=== PATIENT | female | born 1960 | race African-American/Black ===

== ENCOUNTER → 2016-12-27 | Outpatient (CLI) | payer MEDICARE, MEDICAID ==
[~2016-12-27] MED LIST: ALBU1.257 NEB; ALPR2TAB2 PO; B-COCAP34; BIOT10004; CALC600T4; DOCU-94; ERGO2000 PO; FLUT250M2 INH; GARL10CA2 PO; LOS50T PO; MECL-87 PO; MEGE40TA15 PO; MELA3TAB27 PO; MET10T PO; METF-312 PO; NAPR-604 PO; OMEGCAP9; OMEP20CA5 PO; OXYC10TA44 PO; PANTPAK; PEDI0.2512; POTATAB; PREMARIN VG; PRENTAB76; RANO500T2 PO; SUCR1TAB38 OR; [UNRECOGNIZED DRUG - CODE]
[2016-12-27 12:43] VITALS: BP_SYST 122; BP_DIAS 80; BP_DIAS 88
== END | disposition home or self-care (01) ==
LOC: CHF HDHVI 13:25
PROVIDERS: ATTEND Internal Medicine Cardiovascular Disease
DX: I50.33 Acute on chronic diastolic (congestive) heart failure (principal); I25.118 Atherosclerotic heart disease of native coronary artery with other forms of angina pectoris
CPT/HCPCS: G0166

== ENCOUNTER → 2017-02-04 | Outpatient (CLI) | payer MEDICARE, MEDICAID ==
[~2017-02-04] MED LIST changes: +READI-CAT 2 (BARIUM SULF)(VANILLA SMOOTHIE) 450ML ONE
== END | disposition home or self-care (01) ==
LOC: Rad HDHVI 11:48
PROVIDERS: ATTEND Internal Medicine Cardiovascular Disease
DX: K80.20 Calculus of gallbladder without cholecystitis without obstruction (principal); K42.9 Umbilical hernia without obstruction or gangrene; M51.36 Other intervertebral disc degeneration, lumbar region; M48.06 Spinal stenosis, lumbar region; Z98.84 Bariatric surgery status; Z90.710 Acquired absence of both cervix and uterus
CPT/HCPCS: 74176

== ENCOUNTER → 2017-02-21 | Outpatient (CLI) | payer MEDICARE, MEDICAID ==
[~2017-02-21] MED LIST changes: -READI-CAT 2 (BARIUM SULF)(VANILLA SMOOTHIE) 450ML ONE
[2017-02-21 13:27] VITALS: BP_SYST 113; BP_SYST 122; BP_DIAS 76; BP_DIAS 86
== END | disposition home or self-care (01) ==
LOC: CHF HDHVI 13:00
PROVIDERS: ATTEND Internal Medicine Cardiovascular Disease
DX: I25.118 Atherosclerotic heart disease of native coronary artery with other forms of angina pectoris (principal); I50.23 Acute on chronic systolic (congestive) heart failure
CPT/HCPCS: G0166

== ENCOUNTER → 2017-02-22 | Outpatient (CLI) | payer MEDICARE, MEDICAID ==
[2017-02-22 13:03] VITALS: BP_SYST 132; BP_SYST 140; BP_DIAS 81; BP_DIAS 89
== END | disposition home or self-care (01) ==
LOC: CHF HDHVI 13:00
PROVIDERS: ATTEND Internal Medicine Cardiovascular Disease
DX: I25.118 Atherosclerotic heart disease of native coronary artery with other forms of angina pectoris (principal); I50.33 Acute on chronic diastolic (congestive) heart failure
CPT/HCPCS: G0166

== ENCOUNTER → 2017-02-24 | Outpatient (CLI) | payer MEDICARE, MEDICAID ==
[2017-02-24 13:24] VITALS: BP_SYST 121; BP_SYST 128; BP_DIAS 86; BP_DIAS 87
== END | disposition home or self-care (01) ==
LOC: CHF HDHVI 13:43
PROVIDERS: ATTEND Internal Medicine Cardiovascular Disease
DX: I25.118 Atherosclerotic heart disease of native coronary artery with other forms of angina pectoris (principal); I50.33 Acute on chronic diastolic (congestive) heart failure
CPT/HCPCS: G0166

== ENCOUNTER → 2017-02-28 | Outpatient (CLI) | payer MEDICARE, MEDICAID ==
[2017-02-28 12:12] VITALS: BP_SYST 130; BP_SYST 138; BP_DIAS 76; BP_DIAS 79
== END | disposition home or self-care (01) ==
LOC: CHF HDHVI 11:43
PROVIDERS: ATTEND Internal Medicine Cardiovascular Disease
DX: I50.33 Acute on chronic diastolic (congestive) heart failure (principal); I25.118 Atherosclerotic heart disease of native coronary artery with other forms of angina pectoris
CPT/HCPCS: G0166

== ENCOUNTER → 2017-03-01 | Outpatient (CLI) | payer MEDICARE, MEDICAID ==
[2017-03-01 12:40] VITALS: BP_SYST 119; BP_SYST 131; BP_DIAS 88
== END | disposition home or self-care (01) ==
LOC: CHF HDHVI 12:00
PROVIDERS: ATTEND Internal Medicine Cardiovascular Disease
DX: I50.33 Acute on chronic diastolic (congestive) heart failure (principal); I25.118 Atherosclerotic heart disease of native coronary artery with other forms of angina pectoris
CPT/HCPCS: G0166

== ENCOUNTER → 2017-03-07 | Outpatient (CLI) | payer MEDICARE, MEDICAID ==
[2017-03-07 12:50] VITALS: BP_SYST 120; BP_SYST 122; BP_DIAS 74; BP_DIAS 78
== END | disposition home or self-care (01) ==
LOC: CHF HDHVI 11:51
PROVIDERS: ATTEND Internal Medicine Cardiovascular Disease
DX: I25.118 Atherosclerotic heart disease of native coronary artery with other forms of angina pectoris (principal); I50.33 Acute on chronic diastolic (congestive) heart failure
CPT/HCPCS: G0166

== ENCOUNTER → 2017-03-08 | Outpatient (CLI) | payer MEDICARE, MEDICAID ==
[2017-03-08 13:00] VITALS: BP_SYST 131; BP_SYST 132; BP_DIAS 86; BP_DIAS 89
== END | disposition home or self-care (01) ==
LOC: CHF HDHVI 12:52
PROVIDERS: ATTEND Internal Medicine Cardiovascular Disease
DX: I25.118 Atherosclerotic heart disease of native coronary artery with other forms of angina pectoris (principal); I50.33 Acute on chronic diastolic (congestive) heart failure
CPT/HCPCS: G0166

== ENCOUNTER → 2017-11-01 | Outpatient (CLI) | payer MEDICARE, MEDICAID ==
[~2017-11-01] MED LIST changes: -METF-312 PO; +METF-370 PO; +MVI in SODIUM CHLORIDE 0.9% 1,000 ML IVB ONE; +MVI in SODIUM CHLORIDE 0.9% 1,010 ML ONE; -NAPR-604 PO; +NAPR375T27 PO; -OMEP20CA5 PO; +OMEP20CA74 PO
[2017-11-01 14:40] VITALS: BP 132/73
== END | disposition home or self-care (01) ==
LOC: CHF HDHVI 11:29
PROVIDERS: ATTEND Internal Medicine Cardiovascular Disease
DX: E86.0 Dehydration (principal); D64.9 Anemia, unspecified; I25.10 Atherosclerotic heart disease of native coronary artery without angina pectoris; Z98.84 Bariatric surgery status
CPT/HCPCS: 96365; 96366; G0463; J3411; J3475

== ENCOUNTER → 2018-03-31 | Outpatient (CLI) | payer MEDICARE, MEDICAID ==
[~2018-03-31] MED LIST changes: -MVI in SODIUM CHLORIDE 0.9% 1,000 ML IVB ONE; -MVI in SODIUM CHLORIDE 0.9% 1,010 ML ONE
[2018-03-31 15:25] LABS: Basophils # (auto) 0 uL; Eosinophils # (auto) 0.2 uL; Lymphocytes # (auto) 1.1 uL; Monocytes # (auto) 0.2 uL; White Blood Cell 4.1 10^3/uL (4.4-10.8)
[2018-03-31 15:29] LABS: Eosinophils % (auto) 4.5 % (0.0-7.0); Hematocrit 29.8 % (36.0-46.0); Hemoglobin 9.6 g/dL (12.2-16.2); Lymphocytes % (auto) 26.7 % (10.0-50.0); Mean Corpuscular Hemoglobin 27.5 pg (28.0-32.0); Mean Corpuscular Hgb Conc. 32.3 g/dL (32.0-36.0); Mean Corpuscular Volume 85.2 fL (80.0-100.0); Monocytes % (auto) 5.5 % (0.0-12.0); Neutrophils # (auto) 2.5 uL; Neutrophils % (auto) 62.3 % (37.0-80.0); Nucleated Red Blood Cells % 0.1 %; Red Cell Distribution Width 18.4 % (11.8-14.3)
[2018-03-31 15:39] LABS: Urine Blood Negative /uL (Negative); Urine Specific Gravity 1.021 (1.001-1.035)
[2018-03-31 17:31] LABS: Platelet Count (auto) 568 10^3/uL (140-450)
[2018-03-31 17:47] LABS: Alanine Aminotransferase 18 U/L (13-56); Albumin 3.2 g/dL (3.4-5.0); Alkaline Phosphatase 91 U/L (45-117); Anion Gap 9 (5-15); Aspartate Aminotransferase 22 U/L (15-37); BUN/Creatinine Ratio 12.6; Bilirubin, Direct < 0.1 mg/dL (0-0.2); Bilirubin, Total 0.4 mg/dL (0.2-1.0); Blood Urea Nitrogen 12 mg/dL (7-18); Calcium 8.9 mg/dL (8.5-10.1); Carbon Dioxide 27 mmol/L (21-32); Chloride 103 mmol/L (98-107); Cholesterol 162 mg/dL (< 200); GFR African American 78 mL/min; GFR Non-African American 65 mL/min; Glucose 91 mg/dL (74-106); HDL Cholesterol 68 mg/dL (40-59); LDL Cholesterol 84 mg/dL (< 100); Potassium 4.5 mmol/L (3.5-5.1); Sodium 139 mmol/L (136-145); Total Protein 7.4 g/dL (6.4-8.2); Triglycerides 65 mg/dL (< 150)
== END | disposition home or self-care (01) ==
LOC: LAB 12:04
PROVIDERS: ATTEND Internal Medicine Cardiovascular Disease
DX: E78.5 Hyperlipidemia, unspecified (principal); D64.9 Anemia, unspecified; I10 Essential (primary) hypertension; E11.9 Type 2 diabetes mellitus without complications; E03.9 Hypothyroidism, unspecified; E55.9 Vitamin D deficiency, unspecified; N39.0 Urinary tract infection, site not specified
CPT/HCPCS: 36415; 80048; 80061; 80076; 81003; 82306; 83036; 84443; 85025

== ENCOUNTER → 2018-05-08 | Outpatient (CLI) | payer MEDICARE, MEDICAID | END | disposition home or self-care (01) | LOC: Rad HDHVI 10:06 | PROVIDERS: ATTEND Internal Medicine Cardiovascular Disease | DX: M54.12 Radiculopathy, cervical region (principal); R20.2 Paresthesia of skin; M47.892 Other spondylosis, cervical region; M50.21 Other cervical disc displacement, high cervical region; M12.88 Other specific arthropathies, not elsewhere classified, other specified site; I25.10 Atherosclerotic heart disease of native coronary artery without angina pectoris; I11.0 Hypertensive heart disease with heart failure; I50.23 Acute on chronic systolic (congestive) heart failure; E78.5 Hyperlipidemia, unspecified; E03.9 Hypothyroidism, unspecified; E11.9 Type 2 diabetes mellitus without complications; M25.78 Osteophyte, vertebrae | CPT/HCPCS: 72125 ==

== ENCOUNTER → 2019-05-15 | Outpatient (CLI) | payer MEDICARE, MEDICAID ==
[~2019-05-15] VITALS: Ht 160 cm; Wt 69.4 kg
[~2019-05-15] MED LIST changes: +ADENOSINE 58 MG in GIVE UN-DILUTED 0 ML IV ONE; +ADENOSINE 90 MG/30 ML INJ IV ONE
== END | disposition home or self-care (01) ==
LOC: Rad HDHVI 09:08
PROVIDERS: ATTEND Internal Medicine Cardiovascular Disease
DX: I08.8 Other rheumatic multiple valve diseases (principal); I20.0 Unstable angina; I49.5 Sick sinus syndrome; F32.9 Major depressive disorder, single episode, unspecified; R53.83 Other fatigue; I11.0 Hypertensive heart disease with heart failure; Z95.0 Presence of cardiac pacemaker
CPT/HCPCS: 78452; 93005; 93306; 96374; 96375; A9500; J0153

== ENCOUNTER → 2019-09-10 | Outpatient (CLI) | payer MEDICARE, MEDICAID ==
[~2019-09-10] MED LIST changes: -ADENOSINE 58 MG in GIVE UN-DILUTED 0 ML IV ONE; -ADENOSINE 90 MG/30 ML INJ IV ONE
[2019-09-10 16:10] VITALS: BP 135/92
[2019-09-10 16:11] VITALS: BP 135/90
--- NOTE | 2019-09-10 16:11 | NUR ---
Signature Attestation Statement: I MIRNA MACE performed this procedure EECP on this patient. Addendum: 09/10/19 at 1611 by MIRNA MACE HDHI2 Amended: Links added.
--- NOTE | 2019-09-10 16:12 | NUR ---
Signature Attestation Statement: I MIRNA MACE performed this procedure EECP on this patient. Addendum: 09/10/19 at 1612 by MIRNA MACE HDHI2 Amended: Links added.
--- NOTE | 2019-09-10 16:15 | NUR ---
Signature Attestation Statement: I MIRNA MACE performed this procedure EECP on this patient. Addendum: 09/10/19 at 1615 by MIRNA MACE HDHI2 Amended: Links added.
== END | disposition home or self-care (01) ==
LOC: CHF HDHVI 14:09
PROVIDERS: ATTEND Internal Medicine Cardiovascular Disease
DX: I25.118 Atherosclerotic heart disease of native coronary artery with other forms of angina pectoris (principal); I11.0 Hypertensive heart disease with heart failure; I50.33 Acute on chronic diastolic (congestive) heart failure; J44.9 Chronic obstructive pulmonary disease, unspecified; E11.9 Type 2 diabetes mellitus without complications; F19.90 Other psychoactive substance use, unspecified, uncomplicated; I73.9 Peripheral vascular disease, unspecified; I63.9 Cerebral infarction, unspecified; D64.9 Anemia, unspecified; Z98.61 Coronary angioplasty status
CPT/HCPCS: G0166

== ENCOUNTER → 2019-09-11 | Outpatient (CLI) | payer MEDICARE, MEDICAID ==
[2019-09-11 14:20] VITALS: BP 162/94
--- NOTE | 2019-09-11 14:20 | NUR ---
Signature Attestation Statement: I MIRNA MACE performed this procedure EECP on this patient. Addendum: 09/11/19 at 1421 by MIRNA MACE HDHI2 Amended: Links added.
--- NOTE | 2019-09-11 14:21 | NUR ---
Signature Attestation Statement: I MIRNA MACE performed this procedure EECP on this patient. Addendum: 09/11/19 at 1422 by MIRNA MACE HDHI2 Amended: Links added.
--- NOTE | 2019-09-11 15:07 | NUR ---
Signature Attestation Statement: I MIRNA MACE performed this procedure EECP on this patient. Addendum: 09/11/19 at 1508 by MIRNA MACE HDHI2 Amended: Links added.
[2019-09-11 15:08] VITALS: BP 142/86
--- NOTE | 2019-09-11 15:16 | NUR ---
Signature Attestation Statement: I MIRNA MACE performed this procedure EECP on this patient. Addendum: 09/11/19 at 1517 by MIRNA MACE HDHI2 Amended: Links added.
== END | disposition home or self-care (01) ==
LOC: CHF HDHVI 13:56
PROVIDERS: ATTEND Internal Medicine Cardiovascular Disease
DX: I25.118 Atherosclerotic heart disease of native coronary artery with other forms of angina pectoris (principal); I11.0 Hypertensive heart disease with heart failure; I50.33 Acute on chronic diastolic (congestive) heart failure; J44.9 Chronic obstructive pulmonary disease, unspecified; E11.9 Type 2 diabetes mellitus without complications; Z98.61 Coronary angioplasty status; F19.90 Other psychoactive substance use, unspecified, uncomplicated; I73.9 Peripheral vascular disease, unspecified; I63.9 Cerebral infarction, unspecified; D64.9 Anemia, unspecified
CPT/HCPCS: G0166

== ENCOUNTER → 2019-09-13 | Outpatient (CLI) | payer MEDICARE, MEDICAID ==
[2019-09-13 15:16] VITALS: BP 117/68
--- NOTE | 2019-09-13 15:16 | NUR ---
Signature Attestation Statement: I MIRNA MACE performed this procedure EECP on this patient. Addendum: 09/13/19 at 1516 by MIRNA MACE HDHI2 Amended: Links added.
--- NOTE | 2019-09-13 15:17 | NUR ---
Signature Attestation Statement: I MIRNA MACE performed this procedure EECP on this patient. Addendum: 09/13/19 at 1517 by MIRNA MACE HDHI2 Amended: Links added.
--- NOTE | 2019-09-13 15:23 | NUR ---
Signature Attestation Statement: I MIRNA MACE performed this procedure EECP on this patient. Addendum: 09/13/19 at 1524 by MIRNA MACE HDHI2 Amended: Links added.
[2019-09-13 15:24] VITALS: BP 113/74
--- NOTE | 2019-09-13 15:28 | NUR ---
Signature Attestation Statement: I MIRNA MACE performed this procedure EECP on this patient. Addendum: 09/13/19 at 1529 by MIRNA MACE HDHI2 Amended: Links added.
== END | disposition home or self-care (01) ==
LOC: CHF HDHVI 14:10
PROVIDERS: ATTEND Internal Medicine Cardiovascular Disease
DX: I25.118 Atherosclerotic heart disease of native coronary artery with other forms of angina pectoris (principal); I50.33 Acute on chronic diastolic (congestive) heart failure; J44.9 Chronic obstructive pulmonary disease, unspecified; I63.9 Cerebral infarction, unspecified; E11.9 Type 2 diabetes mellitus without complications; F19.90 Other psychoactive substance use, unspecified, uncomplicated; I73.9 Peripheral vascular disease, unspecified; D64.9 Anemia, unspecified; R06.02 Shortness of breath; F99 Mental disorder, not otherwise specified; F41.0 Panic disorder [episodic paroxysmal anxiety]; F32.9 Major depressive disorder, single episode, unspecified; F41.9 Anxiety disorder, unspecified; I11.0 Hypertensive heart disease with heart failure; Z87.891 Personal history of nicotine dependence; Z98.61 Coronary angioplasty status; Z90.49 Acquired absence of other specified parts of digestive tract; Z95.811 Presence of heart assist device
CPT/HCPCS: G0166

== ENCOUNTER → 2019-09-14 | Outpatient (CLI) | payer MEDICARE, MEDICAID ==
[2019-09-14 14:52] VITALS: BP 113/70
--- NOTE | 2019-09-14 14:52 | NUR ---
Signature Attestation Statement: I MIRNA MACE performed this procedure EECP on this patient. Addendum: 09/14/19 at 1453 by MIRNA MACE HDHI2 Amended: Links added.
--- NOTE | 2019-09-14 15:24 | NUR ---
Signature Attestation Statement: I MIRNA MACE performed this procedure EECP on this patient. Addendum: 09/14/19 at 1526 by MIRNA MACE HDHI2 Amended: Links added.
[2019-09-14 15:26] VITALS: BP 126/84
--- NOTE | 2019-09-14 15:26 | NUR ---
Signature Attestation Statement: I MIRNA MACE performed this procedure EECP on this patient. Addendum: 09/14/19 at 1527 by MIRNA MACE HDHI2 Amended: Links added.
== END | disposition home or self-care (01) ==
LOC: CHF HDHVI 13:50
PROVIDERS: ATTEND Internal Medicine Cardiovascular Disease
DX: I25.118 Atherosclerotic heart disease of native coronary artery with other forms of angina pectoris (principal); I50.33 Acute on chronic diastolic (congestive) heart failure; J44.9 Chronic obstructive pulmonary disease, unspecified; I63.9 Cerebral infarction, unspecified; E11.9 Type 2 diabetes mellitus without complications; I11.0 Hypertensive heart disease with heart failure; F19.90 Other psychoactive substance use, unspecified, uncomplicated; I73.9 Peripheral vascular disease, unspecified; D64.9 Anemia, unspecified; R06.02 Shortness of breath; F32.9 Major depressive disorder, single episode, unspecified; F41.9 Anxiety disorder, unspecified; Z98.61 Coronary angioplasty status; Z88.6 Allergy status to analgesic agent; Z90.710 Acquired absence of both cervix and uterus; Z95.811 Presence of heart assist device; Z98.890 Other specified postprocedural states
CPT/HCPCS: G0166

== ENCOUNTER → 2019-09-17 | Outpatient (CLI) | payer MEDICARE, MEDICAID ==
[2019-09-17 14:42] VITALS: BP 138/95
--- NOTE | 2019-09-17 14:43 | NUR ---
Signature Attestation Statement: I MIRNA MACE performed this procedure EECP on this patient. Addendum: 09/17/19 at 1443 by MIRNA MACE HDHI2 Amended: Links added.
--- NOTE | 2019-09-17 14:44 | NUR ---
Signature Attestation Statement: I MIRNA MACE performed this procedure EECP on this patient. Addendum: 09/17/19 at 1446 by MIRNA MACE HDHI2 Amended: Links added.
--- NOTE | 2019-09-17 15:21 | NUR ---
Signature Attestation Statement: I MIRNA MACE performed this procedure EECP on this patient. Addendum: 09/17/19 at 1522 by MIRNA MACE HDHI2 Amended: Links added.
[2019-09-17 15:22] VITALS: BP 136/82
--- NOTE | 2019-09-17 15:25 | NUR ---
Signature Attestation Statement: I MIRNA MACE performed this procedure EECP on this patient. Addendum: 09/17/19 at 1526 by MIRNA MAEC HDHI2 Amended: Links added.
== END | disposition home or self-care (01) ==
LOC: CHF HDHVI 13:59
PROVIDERS: ATTEND Internal Medicine Cardiovascular Disease
DX: I25.118 Atherosclerotic heart disease of native coronary artery with other forms of angina pectoris (principal); I11.0 Hypertensive heart disease with heart failure; I50.33 Acute on chronic diastolic (congestive) heart failure; J44.9 Chronic obstructive pulmonary disease, unspecified; I63.9 Cerebral infarction, unspecified; E11.9 Type 2 diabetes mellitus without complications; F19.90 Other psychoactive substance use, unspecified, uncomplicated; F41.9 Anxiety disorder, unspecified; F32.9 Major depressive disorder, single episode, unspecified; I73.9 Peripheral vascular disease, unspecified; Z88.6 Allergy status to analgesic agent; Z98.61 Coronary angioplasty status; Z98.890 Other specified postprocedural states; Z90.710 Acquired absence of both cervix and uterus; Z95.811 Presence of heart assist device
CPT/HCPCS: G0166

== ENCOUNTER → 2019-10-01 | Outpatient (CLI) | payer MEDICARE, MEDICAID ==
[2019-10-01 14:33] VITALS: BP 120/79
--- NOTE | 2019-10-01 14:33 | NUR ---
Signature Attestation Statement: I MIRNA MACE performed this procedure EECP on this patient. Addendum: 10/01/19 at 1433 by MIRNA MACE HDHI2 Amended: Links added.
--- NOTE | 2019-10-01 14:33 | NUR ---
Signature Attestation Statement: I MIRNA MACE performed this procedure EECP on this patient. Addendum: 10/01/19 at 1434 by MIRNA MACE HDHI2 Amended: Links added.
--- NOTE | 2019-10-01 15:21 | NUR ---
Signature Attestation Statement: I MIRNA MACE performed this procedure EECP on this patient. Addendum: 10/01/19 at 1522 by MIRNA MACE HDHI2 Amended: Links added.
[2019-10-01 15:22] VITALS: BP 130/89
--- NOTE | 2019-10-01 15:27 | NUR ---
Signature Attestation Statement: I MIRNA MACE performed this procedure EECP on this patient. Addendum: 10/01/19 at 1528 by MIRNA MACE HDHI2 Amended: Links added.
== END | disposition home or self-care (01) ==
LOC: CHF HDHVI 13:41
PROVIDERS: ATTEND Internal Medicine Cardiovascular Disease
DX: I25.118 Atherosclerotic heart disease of native coronary artery with other forms of angina pectoris (principal); I50.33 Acute on chronic diastolic (congestive) heart failure; J44.9 Chronic obstructive pulmonary disease, unspecified; E11.9 Type 2 diabetes mellitus without complications; R06.02 Shortness of breath; F19.90 Other psychoactive substance use, unspecified, uncomplicated; I73.9 Peripheral vascular disease, unspecified; I63.9 Cerebral infarction, unspecified; I11.0 Hypertensive heart disease with heart failure; D64.9 Anemia, unspecified; Z86.73 Personal history of transient ischemic attack (TIA), and cerebral infarction without residual deficits; Z98.61 Coronary angioplasty status; Z88.6 Allergy status to analgesic agent; Z88.8 Allergy status to other drugs, medicaments and biological substances
CPT/HCPCS: G0166

== ENCOUNTER → 2019-10-02 | Outpatient (CLI) | payer MEDICARE, MEDICAID ==
[2019-10-02 14:35] VITALS: BP 115/71
--- NOTE | 2019-10-02 14:35 | NUR ---
Signature Attestation Statement: I MIRNA MACE performed this procedure EECP on this patient. Addendum: 10/02/19 at 1436 by MIRNA MACE HDHI2 Amended: Links added.
[2019-10-02 15:07] VITALS: BP 115/75
--- NOTE | 2019-10-02 15:07 | NUR ---
Signature Attestation Statement: I MIRNA MACE performed this procedure EECP on this patient. Addendum: 10/02/19 at 1507 by MIRNA MACE HDHI2 Amended: Links added.
--- NOTE | 2019-10-02 15:17 | NUR ---
Signature Attestation Statement: I MIRNA MACE performed this procedure EECP on this patient. Addendum: 10/02/19 at 1518 by MIRNA MACE HDHI2 Amended: Links added.
== END | disposition home or self-care (01) ==
LOC: CHF HDHVI 13:54
PROVIDERS: ATTEND Internal Medicine Cardiovascular Disease
DX: I25.118 Atherosclerotic heart disease of native coronary artery with other forms of angina pectoris (principal); I50.33 Acute on chronic diastolic (congestive) heart failure; J44.9 Chronic obstructive pulmonary disease, unspecified; E11.9 Type 2 diabetes mellitus without complications; F19.90 Other psychoactive substance use, unspecified, uncomplicated; I73.9 Peripheral vascular disease, unspecified; I63.9 Cerebral infarction, unspecified; D64.9 Anemia, unspecified; R06.02 Shortness of breath; Z86.73 Personal history of transient ischemic attack (TIA), and cerebral infarction without residual deficits; Z98.61 Coronary angioplasty status
CPT/HCPCS: G0166

== ENCOUNTER → 2019-10-03 | Outpatient (CLI) | payer MEDICARE, MEDICAID ==
[2019-10-03 14:24] VITALS: BP 125/61
--- NOTE | 2019-10-03 14:24 | NUR ---
Signature Attestation Statement: I MIRNA MACE performed this procedure EECP on this patient. Addendum: 10/03/19 at 1425 by MIRNA MACE HDHI2 Amended: Links added.
--- NOTE | 2019-10-03 14:26 | NUR ---
Signature Attestation Statement: I MIRNA MACE performed this procedure EECP on this patient. Addendum: 10/03/19 at 1426 by MIRNA MACE HDHI2 Amended: Links added.
[2019-10-03 15:15] VITALS: BP 124/86
--- NOTE | 2019-10-03 15:15 | NUR ---
Signature Attestation Statement: I MIRNA MACE performed this procedure EECP on this patient. Addendum: 10/03/19 at 1516 by MIRNA MACE HDHI2 Amended: Links added.
--- NOTE | 2019-10-03 15:20 | NUR ---
Signature Attestation Statement: I MIRNA MACE performed this procedure EECP on this patient. Addendum: 10/03/19 at 1520 by MIRNA MACE HDHI2 Amended: Links added.
== END | disposition home or self-care (01) ==
LOC: CHF HDHVI 14:03
PROVIDERS: ATTEND Internal Medicine Cardiovascular Disease
DX: I25.118 Atherosclerotic heart disease of native coronary artery with other forms of angina pectoris (principal); I11.0 Hypertensive heart disease with heart failure; I50.33 Acute on chronic diastolic (congestive) heart failure; E11.9 Type 2 diabetes mellitus without complications; J44.9 Chronic obstructive pulmonary disease, unspecified; F19.90 Other psychoactive substance use, unspecified, uncomplicated; I73.9 Peripheral vascular disease, unspecified; I63.9 Cerebral infarction, unspecified; R06.02 Shortness of breath; D64.9 Anemia, unspecified; Z98.61 Coronary angioplasty status
CPT/HCPCS: G0166

== ENCOUNTER → 2019-10-05 | Outpatient (CLI) | payer MEDICARE, MEDICAID ==
[2019-10-05 15:51] VITALS: BP_SYST 110; BP_SYST 120; BP_DIAS 69; BP_DIAS 70
--- NOTE | 2019-10-05 15:51 | NUR ---
Signature Attestation Statement: I MIRNA MACE performed this procedure EECP on this patient. Addendum: 10/05/19 at 1551 by MIRNA MACE HDHI2 Amended: Links added.
--- NOTE | 2019-10-05 15:52 | NUR ---
Signature Attestation Statement: I MIRNA MACE performed this procedure EECP on this patient. Addendum: 10/05/19 at 1552 by MIRNA MACE HDHI2 Amended: Links added.
--- NOTE | 2019-10-05 15:52 | NUR ---
Signature Attestation Statement: I MIRNA MACE performed this procedure EECP on this patient. Addendum: 10/05/19 at 1553 by MIRNA MACE HDHI2 Amended: Links added.
--- NOTE | 2019-10-05 15:56 | NUR ---
Signature Attestation Statement: I MIRNA MACE performed this procedure EECP on this patient. Addendum: 10/05/19 at 1556 by MIRNA MACE HDHI2 Amended: Links added.
== END | disposition home or self-care (01) ==
LOC: CHF HDHVI 14:33
PROVIDERS: ATTEND Internal Medicine Cardiovascular Disease
DX: I25.118 Atherosclerotic heart disease of native coronary artery with other forms of angina pectoris (principal); I11.0 Hypertensive heart disease with heart failure; I50.33 Acute on chronic diastolic (congestive) heart failure; J44.9 Chronic obstructive pulmonary disease, unspecified; F19.90 Other psychoactive substance use, unspecified, uncomplicated; I73.9 Peripheral vascular disease, unspecified; I63.9 Cerebral infarction, unspecified; D64.9 Anemia, unspecified; R06.02 Shortness of breath
CPT/HCPCS: G0166

== ENCOUNTER → 2019-10-15 | Outpatient (CLI) | payer MEDICARE, MEDICAID ==
[2019-10-15 14:36] VITALS: BP 143/89
--- NOTE | 2019-10-15 14:37 | NUR ---
Signature Attestation Statement: I MIRNA MACE performed this procedure EECP on this patient. Addendum: 10/15/19 at 1437 by MIRNA MACE HDHI2 Amended: Links added.
[2019-10-15 15:11] VITALS: BP 146/93
--- NOTE | 2019-10-15 15:11 | NUR ---
Signature Attestation Statement: I MIRNA MACE performed this procedure EECP on this patient. Addendum: 10/15/19 at 1511 by MIRNA MACE HDHI2 Amended: Links added.
--- NOTE | 2019-10-15 15:21 | NUR ---
Signature Attestation Statement: I MIRNA MACE performed this procedure EECP on this patient. Addendum: 10/15/19 at 1521 by MIRNA MACE HDHI2 Amended: Links added.
== END | disposition home or self-care (01) ==
LOC: CHF HDHVI 13:58
PROVIDERS: ATTEND Internal Medicine Cardiovascular Disease
DX: I25.118 Atherosclerotic heart disease of native coronary artery with other forms of angina pectoris (principal); I11.0 Hypertensive heart disease with heart failure; I50.33 Acute on chronic diastolic (congestive) heart failure; J44.9 Chronic obstructive pulmonary disease, unspecified; F19.90 Other psychoactive substance use, unspecified, uncomplicated; I73.9 Peripheral vascular disease, unspecified; I63.9 Cerebral infarction, unspecified; D64.9 Anemia, unspecified
CPT/HCPCS: G0166

== ENCOUNTER → 2019-10-19 | Outpatient (CLI) | payer MEDICARE, MEDICAID ==
[2019-10-19 14:24] VITALS: BP 104/59
--- NOTE | 2019-10-19 14:24 | NUR ---
Signature Attestation Statement: I MIRNA MACE performed this procedure EECP on this patient. Addendum: 10/19/19 at 1425 by MIRNA MACE HDHI2 Amended: Links added.
--- NOTE | 2019-10-19 15:04 | NUR ---
Signature Attestation Statement: I MIRNA MACE performed this procedure EECP on this patient. Addendum: 10/19/19 at 1505 by MIRNA MACE HDHI2 Amended: Links added.
[2019-10-19 15:05] VITALS: BP 114/80
--- NOTE | 2019-10-19 15:14 | NUR ---
Signature Attestation Statement: I MIRNA MACE performed this procedure EECP on this patient. Addendum: 10/19/19 at 1514 by MIRNA MACE HDHI2 Amended: Links added.
== END | disposition home or self-care (01) ==
LOC: CHF HDHVI 13:41
PROVIDERS: ATTEND Internal Medicine Cardiovascular Disease
DX: I25.118 Atherosclerotic heart disease of native coronary artery with other forms of angina pectoris (principal); I50.33 Acute on chronic diastolic (congestive) heart failure; I10 Essential (primary) hypertension; J44.9 Chronic obstructive pulmonary disease, unspecified; F19.90 Other psychoactive substance use, unspecified, uncomplicated; I73.9 Peripheral vascular disease, unspecified; I63.9 Cerebral infarction, unspecified; D64.9 Anemia, unspecified; Z98.61 Coronary angioplasty status; E11.9 Type 2 diabetes mellitus without complications; Z88.6 Allergy status to analgesic agent; R75 Inconclusive laboratory evidence of human immunodeficiency virus [HIV]; I25.9 Chronic ischemic heart disease, unspecified; Z86.73 Personal history of transient ischemic attack (TIA), and cerebral infarction without residual deficits
CPT/HCPCS: G0166

== ENCOUNTER → 2019-10-22 | Outpatient (CLI) | payer MEDICARE, MEDICAID ==
[2019-10-22 14:42] VITALS: BP 128/75
--- NOTE | 2019-10-22 14:43 | NUR ---
Signature Attestation Statement: I MIRNA MACE performed this procedure EECP on this patient. Addendum: 10/22/19 at 1443 by MIRNA MACE HDHI2 Amended: Links added.
--- NOTE | 2019-10-22 15:29 | NUR ---
Signature Attestation Statement: I MIRNA MACE performed this procedure EECP on this patient. Addendum: 10/22/19 at 1530 by MIRNA MACE HDHI2 Amended: Links added.
[2019-10-22 15:30] VITALS: BP 143/88
--- NOTE | 2019-10-22 15:37 | NUR ---
Signature Attestation Statement: I MIRNA MACE performed this procedure EECP on this patient. Addendum: 10/22/19 at 1537 by MIRNA MACE HDHI2 Amended: Links added.
== END | disposition home or self-care (01) ==
LOC: CHF HDHVI 13:58
PROVIDERS: ATTEND Internal Medicine Cardiovascular Disease
DX: I25.118 Atherosclerotic heart disease of native coronary artery with other forms of angina pectoris (principal); I11.0 Hypertensive heart disease with heart failure; I50.33 Acute on chronic diastolic (congestive) heart failure; E11.51 Type 2 diabetes mellitus with diabetic peripheral angiopathy without gangrene; J44.9 Chronic obstructive pulmonary disease, unspecified; F19.90 Other psychoactive substance use, unspecified, uncomplicated; D64.9 Anemia, unspecified; R06.02 Shortness of breath; Z86.73 Personal history of transient ischemic attack (TIA), and cerebral infarction without residual deficits
CPT/HCPCS: G0166

== ENCOUNTER → 2019-10-23 | Outpatient (CLI) | payer MEDICARE, MEDICAID ==
[2019-10-23 14:52] VITALS: BP 119/66
--- NOTE | 2019-10-23 14:52 | NUR ---
Signature Attestation Statement: I MIRNA MACE performed this procedure EECP on this patient. Addendum: 10/23/19 at 1452 by MIRNA MACE HDHI2 Amended: Links added.
--- NOTE | 2019-10-23 14:53 | NUR ---
Signature Attestation Statement: I MIRNA MACE performed this procedure EECP on this patient. Addendum: 10/23/19 at 1454 by MIRNA MACE HDHI2 Amended: Links added.
--- NOTE | 2019-10-23 15:28 | NUR ---
Signature Attestation Statement: I MIRNA MACE performed this procedure EECP on this patient. Addendum: 10/23/19 at 1529 by MIRNA MACE HDHI2 Amended: Links added.
[2019-10-23 15:29] VITALS: BP 121/79
--- NOTE | 2019-10-23 15:38 | NUR ---
Signature Attestation Statement: I MIRNA MACE performed this procedure EECP on this patient. Addendum: 10/23/19 at 1538 by MIRNA MACE HDHI2 Amended: Links added.
== END | disposition home or self-care (01) ==
LOC: CHF HDHVI 14:28
PROVIDERS: ATTEND Internal Medicine Cardiovascular Disease
DX: I25.118 Atherosclerotic heart disease of native coronary artery with other forms of angina pectoris (principal); I11.0 Hypertensive heart disease with heart failure; I50.33 Acute on chronic diastolic (congestive) heart failure; E11.51 Type 2 diabetes mellitus with diabetic peripheral angiopathy without gangrene; J44.9 Chronic obstructive pulmonary disease, unspecified; F19.90 Other psychoactive substance use, unspecified, uncomplicated; D64.9 Anemia, unspecified; R06.02 Shortness of breath; Z86.73 Personal history of transient ischemic attack (TIA), and cerebral infarction without residual deficits
CPT/HCPCS: G0166

== ENCOUNTER → 2019-10-24 | Outpatient (CLI) | payer MEDICARE, MEDICAID ==
[2019-10-24 14:34] VITALS: BP 111/63
--- NOTE | 2019-10-24 14:34 | NUR ---
Signature Attestation Statement: I MIRNA MACE performed this procedure EECP on this patient. Addendum: 10/24/19 at 1434 by MIRNA MACE HDHI2 Amended: Links added.
--- NOTE | 2019-10-24 14:35 | NUR ---
Signature Attestation Statement: I MIRNA MACE performed this procedure EECP on this patient. Addendum: 10/24/19 at 1435 by MIRNA MACE HDHI2 Amended: Links added.
[2019-10-24 15:13] VITALS: BP 118/81
--- NOTE | 2019-10-24 15:13 | NUR ---
Signature Attestation Statement: I MIRNA MACE performed this procedure EECP on this patient. Addendum: 10/24/19 at 1513 by MIRNA MACE HDHI2 Amended: Links added.
--- NOTE | 2019-10-24 15:21 | NUR ---
Signature Attestation Statement: I MIRNA MACE performed this procedure EECP on this patient. Addendum: 10/24/19 at 1522 by MIRNA MACE HDHI2 Amended: Links added.
== END | disposition home or self-care (01) ==
LOC: CHF HDHVI 14:11
PROVIDERS: ATTEND Internal Medicine Cardiovascular Disease
DX: I25.118 Atherosclerotic heart disease of native coronary artery with other forms of angina pectoris (principal); I11.0 Hypertensive heart disease with heart failure; I50.33 Acute on chronic diastolic (congestive) heart failure; J44.9 Chronic obstructive pulmonary disease, unspecified; I73.9 Peripheral vascular disease, unspecified; R06.02 Shortness of breath; Z86.73 Personal history of transient ischemic attack (TIA), and cerebral infarction without residual deficits
CPT/HCPCS: G0166

== ENCOUNTER → 2019-10-25 | Outpatient (CLI) | payer MEDICARE, MEDICAID ==
[2019-10-25 14:30] VITALS: BP 103/62
--- NOTE | 2019-10-25 14:30 | NUR ---
Signature Attestation Statement: I MIRNA MACE performed this procedure EECP on this patient. Addendum: 10/25/19 at 1431 by MIRNA MACE HDHI2 Amended: Links added.
--- NOTE | 2019-10-25 14:31 | NUR ---
Signature Attestation Statement: I MIRNA MACE performed this procedure EECP on this patient. Addendum: 10/25/19 at 1432 by MIRNA MACE HDHI2 Amended: Links added.
--- NOTE | 2019-10-25 15:07 | NUR ---
Signature Attestation Statement: I MIRNA MACE performed this procedure EECP on this patient. Addendum: 10/25/19 at 1508 by MIRNA MACE HDHI2 Amended: Links added.
[2019-10-25 15:08] VITALS: BP 123/77
--- NOTE | 2019-10-25 15:17 | NUR ---
Signature Attestation Statement: I MIRNA MACE performed this procedure EECP on this patient. Addendum: 10/25/19 at 1517 by MIRNA MACE HDHI2 Amended: Links added.
== END | disposition home or self-care (01) ==
LOC: CHF HDHVI 14:16
PROVIDERS: ATTEND Internal Medicine Cardiovascular Disease
DX: I25.118 Atherosclerotic heart disease of native coronary artery with other forms of angina pectoris (principal); I11.0 Hypertensive heart disease with heart failure; I50.33 Acute on chronic diastolic (congestive) heart failure; E11.51 Type 2 diabetes mellitus with diabetic peripheral angiopathy without gangrene; J44.9 Chronic obstructive pulmonary disease, unspecified; F19.90 Other psychoactive substance use, unspecified, uncomplicated; D64.9 Anemia, unspecified; R06.02 Shortness of breath; Z86.73 Personal history of transient ischemic attack (TIA), and cerebral infarction without residual deficits
CPT/HCPCS: G0166

== ENCOUNTER → 2019-11-19 | Outpatient (CLI) | payer MEDICARE, MEDICAID ==
[2019-11-19 14:29] VITALS: BP 123/75
--- NOTE | 2019-11-19 14:29 | NUR ---
Signature Attestation Statement: I MIRNA MACE performed this procedure EECP on this patient. Addendum: 11/19/19 at 1430 by MIRNA MACE HDHI2 Amended: Links added.
--- NOTE | 2019-11-19 15:08 | NUR ---
Signature Attestation Statement: I MIRNA MACE performed this procedure EECP on this patient. Addendum: 11/19/19 at 1509 by MIRNA MACE HDHI2 Amended: Links added.
[2019-11-19 15:09] VITALS: BP 130/86
--- NOTE | 2019-11-19 15:14 | NUR ---
Signature Attestation Statement: I MIRNA MACE performed this procedure EECP on this patient. Addendum: 11/19/19 at 1514 by MIRNA MACE HDHI2 Amended: Links added.
== END | disposition home or self-care (01) ==
LOC: CHF HDHVI 13:53
PROVIDERS: ATTEND Internal Medicine Cardiovascular Disease
DX: I25.118 Atherosclerotic heart disease of native coronary artery with other forms of angina pectoris (principal); I50.33 Acute on chronic diastolic (congestive) heart failure; J44.9 Chronic obstructive pulmonary disease, unspecified; F19.90 Other psychoactive substance use, unspecified, uncomplicated; E11.51 Type 2 diabetes mellitus with diabetic peripheral angiopathy without gangrene; D64.9 Anemia, unspecified; R06.02 Shortness of breath; Z86.73 Personal history of transient ischemic attack (TIA), and cerebral infarction without residual deficits
CPT/HCPCS: G0166

== ENCOUNTER → 2019-11-26 | Outpatient (CLI) | payer MEDICARE, MEDICAID ==
[2019-11-26 14:31] VITALS: BP 121/66
--- NOTE | 2019-11-26 14:31 | NUR ---
Signature Attestation Statement: I MIRNA MACE performed this procedure EECP on this patient. Addendum: 11/26/19 at 1431 by MIRNA MACE HDHI2 Amended: Links added.
--- NOTE | 2019-11-26 14:32 | NUR ---
Signature Attestation Statement: I MIRNA MACE performed this procedure EECP on this patient. Addendum: 11/26/19 at 1432 by MIRNA MACE HDHI2 Amended: Links added.
[2019-11-26 15:07] VITALS: BP 121/73
--- NOTE | 2019-11-26 15:07 | NUR ---
Signature Attestation Statement: I MIRNA MACE performed this procedure EECP on this patient. Addendum: 11/26/19 at 1507 by MIRNA MACE HDHI2 Amended: Links added.
--- NOTE | 2019-11-26 15:13 | NUR ---
Signature Attestation Statement: I MIRNA MACE performed this procedure EECP on this patient. Addendum: 11/26/19 at 1514 by MIRNA MACE HDHI2 Amended: Links added.
== END | disposition home or self-care (01) ==
LOC: CHF HDHVI 14:04
PROVIDERS: ATTEND Internal Medicine Cardiovascular Disease
DX: I25.118 Atherosclerotic heart disease of native coronary artery with other forms of angina pectoris (principal); I50.33 Acute on chronic diastolic (congestive) heart failure; E11.51 Type 2 diabetes mellitus with diabetic peripheral angiopathy without gangrene; J44.9 Chronic obstructive pulmonary disease, unspecified; F19.90 Other psychoactive substance use, unspecified, uncomplicated; D64.9 Anemia, unspecified; R06.02 Shortness of breath; Z86.73 Personal history of transient ischemic attack (TIA), and cerebral infarction without residual deficits
CPT/HCPCS: G0166

== ENCOUNTER → 2020-02-25 | Outpatient (CLI) | payer MEDICARE, MEDICAID ==
[~2020-02-25] MED LIST changes: +IOHEXOL 350 MG/ML 100ML IJ ONE; -MECL-87 PO; +MECL25TA18 PO
[2020-02-25 15:15] VITALS: BP 130/84
--- NOTE | 2020-02-25 15:15 | NUR ---
PT. TO CLINIC FROM DR. NAJERA'S OFFICE FOR ADD ON CTA, AND LABS, PT. WITH HX OF DIFF. SWALLOWING AND NECK NODULE, AND HAS BEEN REFFERRED TO G.I. . ORDERS RECEIVED AND CARRIED OUT. SEE NSG ASSESS.
--- NOTE | 2020-02-25 15:20 | NUR ---
20G HL ESTABLISHED RT AC ON INITIAL ATTEMPT. STAT. CREAT. SENT PER MD ORDER WITH ADDITIONAL LABS SENT PER MD ORDER.
[2020-02-25 15:59] LABS: Urine Blood Negative /uL (Negative); Urine Specific Gravity 1.005 (1.001-1.035)
[2020-02-25 16:00] LABS: Hemoglobin 8.4 g/dL (12.2-16.2); White Blood Cell 5.2 10^3/uL (4.4-10.8)
[2020-02-25 16:03] LABS: Hematocrit 27.3 % (36.0-46.0); Mean Corpuscular Hemoglobin 20.3 pg (28.0-32.0); Mean Corpuscular Volume 65.7 fL (80.0-100.0); Platelet Count (auto) 412 10^3/uL (140-450); Red Blood Cells 4.15 10^6/uL (4.0-5.20); Red Cell Distribution Width 22.3 % (11.8-14.3)
[2020-02-25 16:04] LABS: Band Neutrophils % (manual) 0; Blast Cells 0; Metamyelocytes % 0; Myelocytes % 0; Promyelocytes % 0; Reactive Lymphocytes 0
[2020-02-25 16:16] LABS: Albumin 3.8 g/dL (3.4-5.0); Calcium 9.2 mg/dL (8.5-10.1); Potassium 4.7 mmol/L (3.5-5.1)
[2020-02-25 16:20] LABS: Bilirubin, Direct 0.1 mg/dL (0-0.2); Bilirubin, Total 0.3 mg/dL (0.2-1.0); Total Protein 7.8 g/dL (6.4-8.2)
[2020-02-25 16:26] LABS: Basophils % (manual) 1 (0.0-2.0); Eosinophils % (manual) 5 (0-7); Lymphocytes % (manual) 38 (10.0-50.0); Monocytes % (manual) 4 (0-12)
--- NOTE | 2020-02-25 16:30 | NUR ---
LABS REVIEWED. PT. TO AND FROM CT. TOLERATED PROCEDURE WELL.
[2020-02-25 16:55] VITALS: BP 142/83
--- NOTE | 2020-02-25 16:55 | NUR ---
IV removal IV DC'd with sterile technique, catheter fully intact. Pressure dressing applied to site. Patient tolerated procedure well. Discharged with aftercare instructions per MD. NOTE: PT. INSTRUCTED TO INCREASE WATER INTAKE FOR NEXT 24 HOURS AND AGAIN HOLD METFORMIN X 48 HRS.
== END | disposition home or self-care (01) ==
LOC: Rad HDHVI 15:11
PROVIDERS: ATTEND Internal Medicine Cardiovascular Disease
DX: R59.9 Enlarged lymph nodes, unspecified (principal); E03.9 Hypothyroidism, unspecified; K90.9 Intestinal malabsorption, unspecified; Z79.899 Other long term (current) drug therapy; N39.0 Urinary tract infection, site not specified
CPT/HCPCS: 36415; 70491; 71260; 80048; 80061; 80076; 81003; 82306; 82565; 83036; 84443; 85007; 85027; G0463; Q9967

== ENCOUNTER → 2020-08-14 | Outpatient (CLI) | payer MEDICARE, MEDICAID ==
[~2020-08-14] MED LIST changes: -CALC600T4; +CALC600T5; -IOHEXOL 350 MG/ML 100ML IJ ONE; +SUCR1TAB22 OR; -SUCR1TAB38 OR
== END | disposition home or self-care (01) ==
LOC: Rad HDHVI 14:00
PROVIDERS: ATTEND Internal Medicine Cardiovascular Disease
DX: I08.3 Combined rheumatic disorders of mitral, aortic and tricuspid valves (principal); I71.2 Thoracic aortic aneurysm, without rupture; I49.5 Sick sinus syndrome; Z95.0 Presence of cardiac pacemaker
CPT/HCPCS: 93306

== ENCOUNTER → 2020-08-18 | Outpatient (CLI) | payer MEDICARE, MEDICAID ==
[~2020-08-18] VITALS: Ht 160 cm; Wt 81.6 kg
[~2020-08-18] MED LIST changes: +ADENOSINE 69 MG in GIVE UN-DILUTED 0 ML IV ONE; +ADENOSINE 90 MG/30 ML INJ IV ONE
== END | disposition home or self-care (01) ==
LOC: Rad HDHVI 14:20
PROVIDERS: ATTEND Internal Medicine Cardiovascular Disease
DX: I10 Essential (primary) hypertension (principal); E11.9 Type 2 diabetes mellitus without complications; R07.9 Chest pain, unspecified; Z95.0 Presence of cardiac pacemaker; Z82.49 Family history of ischemic heart disease and other diseases of the circulatory system; Z88.8 Allergy status to other drugs, medicaments and biological substances
CPT/HCPCS: 78452; 93005; 96374; 96375; A9500; J0153

== ENCOUNTER → 2020-08-22 | Outpatient (CLI) | payer MEDICARE, MEDICAID ==
[~2020-08-22] MED LIST changes: -ADENOSINE 69 MG in GIVE UN-DILUTED 0 ML IV ONE; -ADENOSINE 90 MG/30 ML INJ IV ONE
[2020-08-22 11:38] LABS: Basophils # (auto) 0 10 ^3/uL (0-0.2); Basophils % (auto) 0.9 % (0.0-2.0); Eosinophils # (auto) 0.2 10 ^3/uL (0-0.8); Eosinophils % (auto) 4.1 % (0.0-7.0); Hematocrit 36.8 % (36.0-46.0); Lymphocytes # (auto) 1.7 10 ^3/uL (0.4-5.4); Lymphocytes % (auto) 42.8 % (10.0-50.0); Mean Corpuscular Hemoglobin 29.9 pg (28.0-32.0); Mean Corpuscular Hgb Conc. 32.7 g/dL (32.0-36.0); Mean Corpuscular Volume 91.6 fL (80.0-100.0); Monocytes # (auto) 0.3 10 ^3/uL (0-1.3); Monocytes % (auto) 7.5 % (0.0-12.0); Neutrophils # (auto) 1.7 10 ^3/uL (1.6-8.6); Neutrophils % (auto) 44.7 % (37.0-80.0); Nucleated Red Blood Cells % 0.1 %; Platelet Count (auto) 244 10^3/uL (140-450); Red Blood Cells 4.02 10^6/uL (4.0-5.20); Red Cell Distribution Width 17.6 % (11.8-14.3); White Blood Cell 3.9 10^3/uL (4.4-10.8)
[2020-08-22 11:42] LABS: Albumin 3.3 g/dL (3.4-5.0); BUN/Creatinine Ratio 16.7; Calcium 8.7 mg/dL (8.5-10.1); Potassium 4.8 mmol/L (3.5-5.1)
[2020-08-22 11:46] LABS: Bilirubin, Total 0.2 mg/dL (0.2-1.0); Total Protein 7.1 g/dL (6.4-8.2)
[2020-08-22 11:55] LABS: Free T4 (Free Thyroxine) 0.94 ng/dL (0.89-1.76)
[2020-08-22 13:03] LABS: Urine Blood Negative /uL (Negative); Urine Specific Gravity 1.018 (1.001-1.035)
== END | disposition home or self-care (01) ==
LOC: LAB 08:52
PROVIDERS: ATTEND Internal Medicine Cardiovascular Disease
DX: E11.9 Type 2 diabetes mellitus without complications (principal); I10 Essential (primary) hypertension; D51.3 Other dietary vitamin B12 deficiency anemia; E55.9 Vitamin D deficiency, unspecified; D64.9 Anemia, unspecified; R00.2 Palpitations; R53.1 Weakness; R30.0 Dysuria
CPT/HCPCS: 36415; 80053; 80061; 81003; 82306; 82607; 83036; 84439; 84443; 85025

== ENCOUNTER → 2021-11-25 | Outpatient (CLI) | payer MEDICARE, MEDICAID ==
[~2021-11-25] MED LIST changes: -MEGE40TA15 PO; +MEGE40TA4 PO
== END | disposition home or self-care (01) ==
LOC: Rad HDHVI 08:56
PROVIDERS: ATTEND Internal Medicine Cardiovascular Disease
DX: R00.2 Palpitations (principal); I10 Essential (primary) hypertension
CPT/HCPCS: 93306

== ENCOUNTER → 2021-11-26 | Outpatient (CLI) | payer MEDICARE, MEDICAID ==
[~2021-11-26] VITALS: Ht 160 cm; Wt 90.7 kg
[~2021-11-26] MED LIST changes: +ADENOSINE 76 MG in GIVE UN-DILUTED 0 ML IV ONE; +ADENOSINE 90 MG/30 ML INJ IV ONE
[2021-11-26 11:41] LABS: Basophils # (auto) 0 10 ^3/uL (0-0.2); Basophils % (auto) 0.7 % (0.0-2.0); Eosinophils # (auto) 0.1 10 ^3/uL (0-0.8); Eosinophils % (auto) 3.1 % (0.0-7.0); Hematocrit 36.4 % (36.0-46.0); Lymphocytes # (auto) 1.3 10 ^3/uL (0.4-5.4); Lymphocytes % (auto) 38.6 % (10.0-50.0); Mean Corpuscular Hemoglobin 30.5 pg (28.0-32.0); Mean Corpuscular Hgb Conc. 33.1 g/dL (32.0-36.0); Mean Corpuscular Volume 92.4 fL (80.0-100.0); Monocytes # (auto) 0.2 10 ^3/uL (0-1.3); Neutrophils # (auto) 1.7 10 ^3/uL (1.6-8.6); Neutrophils % (auto) 51.6 % (37.0-80.0); Red Blood Cells 3.94 10^6/uL (4.0-5.20); Red Cell Distribution Width 15.8 % (11.8-14.3); White Blood Cell 3.4 10^3/uL (4.4-10.8)
[2021-11-26 11:42] LABS: Urine Blood Negative /uL (Negative); Urine Specific Gravity 1.016 (1.001-1.035)
[2021-11-26 12:18] LABS: Free T4 (Free Thyroxine) 1.18 ng/dL (0.89-1.76)
[2021-11-26 12:25] LABS: Albumin 3.6 g/dL (3.4-5.0); BUN/Creatinine Ratio 13.2; Bilirubin, Total 0.5 mg/dL (0.2-1.0); Calcium 8.7 mg/dL (8.5-10.1); Total Protein 7.3 g/dL (6.4-8.2)
== END | disposition home or self-care (01) ==
LOC: Rad HDHVI 08:58
PROVIDERS: ATTEND Internal Medicine Cardiovascular Disease
DX: I10 Essential (primary) hypertension (principal); D51.3 Other dietary vitamin B12 deficiency anemia; E11.9 Type 2 diabetes mellitus without complications; E55.9 Vitamin D deficiency, unspecified; D64.9 Anemia, unspecified; R00.2 Palpitations; R53.1 Weakness; R30.0 Dysuria
CPT/HCPCS: 36415; 78452; 80053; 80061; 81003; 82306; 82607; 83036; 84439; 84443; 85025; 93005; 96374; 96375; A9500; J0153

== ENCOUNTER → 2022-12-07 | Outpatient (CLI) | payer MEDICARE, MEDICAID ==
[~2022-12-07] MED LIST changes: -ADENOSINE 76 MG in GIVE UN-DILUTED 0 ML IV ONE; -ADENOSINE 90 MG/30 ML INJ IV ONE
[2022-12-07 15:36] LABS: Urine Blood Negative /uL (Negative); Urine Specific Gravity 1.027 (1.001-1.035)
[2022-12-07 15:48] LABS: Basophils # (auto) 0 10 ^3/uL (0-0.2); Basophils % (auto) 0.8 % (0.0-2.0); Eosinophils # (auto) 0.2 10 ^3/uL (0-0.8); Eosinophils % (auto) 4.2 % (0.0-7.0); Hematocrit 38.1 % (36.0-46.0); Hemoglobin 12.8 g/dL (12.2-16.2); Lymphocytes # (auto) 1.9 10 ^3/uL (0.4-5.4); Lymphocytes % (auto) 45.6 % (10.0-50.0); Mean Corpuscular Hemoglobin 31.5 pg (28.0-32.0); Mean Corpuscular Hgb Conc. 33.5 g/dL (32.0-36.0); Mean Corpuscular Volume 94.2 fL (80.0-100.0); Monocytes # (auto) 0.3 10 ^3/uL (0-1.3); Monocytes % (auto) 6.3 % (0.0-12.0); Neutrophils # (auto) 1.8 10 ^3/uL (1.6-8.6); Neutrophils % (auto) 43.1 % (37.0-80.0); Nucleated Red Blood Cells % 0.3 %; Red Blood Cells 4.04 10^6/uL (4.0-5.20); Red Cell Distribution Width 15.5 % (11.8-14.3); White Blood Cell 4.1 10^3/uL (4.4-10.8)
[2022-12-07 16:00] LABS: Albumin 4.1 g/dL (3.4-5.0); BUN/Creatinine Ratio 15.2; Bilirubin, Total 0.9 mg/dL (0.2-1.0); Calcium 8.7 mg/dL (8.5-10.1); Total Protein 7.2 g/dL (6.4-8.2)
[2022-12-07 16:09] LABS: Free T4 (Free Thyroxine) 1.14 ng/dL (0.89-1.76)
== END | disposition home or self-care (01) ==
LOC: LAB 10:47
PROVIDERS: ATTEND Internal Medicine Cardiovascular Disease
DX: I10 Essential (primary) hypertension (principal); E55.9 Vitamin D deficiency, unspecified; D51.3 Other dietary vitamin B12 deficiency anemia; D64.9 Anemia, unspecified; E11.9 Type 2 diabetes mellitus without complications; R00.2 Palpitations; R53.1 Weakness; R30.0 Dysuria
CPT/HCPCS: 36415; 80053; 80061; 81003; 82306; 82607; 83036; 84439; 84443; 85025; 87086

== ENCOUNTER → 2023-08-02 | Outpatient (CLI) | payer MEDICARE, MEDICAID ==
[~2023-08-02] VITALS: Ht 160 cm; Wt 105.7 kg
[~2023-08-02] MED LIST changes: +ADENOSINE 89 MG in GIVE UN-DILUTED 0 ML IV ONE; +ADENOSINE 90 MG/30 ML INJ IV ONE; +MECL1TAB32 PO; -MECL25TA18 PO; +NAPR-957 PO; -NAPR375T27 PO
== END | disposition home or self-care (01) ==
LOC: Rad HDHVI 13:34
PROVIDERS: ATTEND Internal Medicine Cardiovascular Disease
DX: I25.10 Atherosclerotic heart disease of native coronary artery without angina pectoris (principal); I10 Essential (primary) hypertension; R00.2 Palpitations; R07.9 Chest pain, unspecified; R06.02 Shortness of breath; E11.9 Type 2 diabetes mellitus without complications; I25.2 Old myocardial infarction; Z95.1 Presence of aortocoronary bypass graft; Z95.0 Presence of cardiac pacemaker
CPT/HCPCS: 78452; 93005; 96374; 96375; A9500; J0153

== ENCOUNTER → 2024-04-17 | Outpatient (CLI) | payer MEDICARE, MEDICAID ==
[~2024-04-17] MED LIST changes: -ADENOSINE 89 MG in GIVE UN-DILUTED 0 ML IV ONE; -ADENOSINE 90 MG/30 ML INJ IV ONE; +MECL-90 PO; -MECL1TAB32 PO; -SUCR1TAB22 OR; +SUCR1TAB31 OR
[2024-04-17 08:52] LABS: Basophils # (auto) 0 10 ^3/uL (0-0.2); Basophils % (auto) 1.2 % (0.0-2.0); Eosinophils # (auto) 0.1 10 ^3/uL (0-0.8); Eosinophils % (auto) 2.5 % (0.0-7.0); Hematocrit 37.9 % (36.0-46.0); Hemoglobin 12.4 g/dL (12.2-16.2); Lymphocytes # (auto) 1.6 10 ^3/uL (0.4-5.4); Lymphocytes % (auto) 39.8 % (10.0-50.0); Mean Corpuscular Hgb Conc. 32.8 g/dL (32.0-36.0); Mean Corpuscular Volume 91.4 fL (80.0-100.0); Monocytes # (auto) 0.2 10 ^3/uL (0-1.3); Monocytes % (auto) 5.5 % (0.0-12.0); Neutrophils # (auto) 2.1 10 ^3/uL (1.6-8.6); Nucleated Red Blood Cells % 0.1 %; Red Blood Cells 4.14 10^6/uL (4.0-5.20); Red Cell Distribution Width 15.3 % (11.8-14.3)
[2024-04-17 09:01] LABS: Urine Blood Negative /uL (Negative); Urine Clarity Clear (Clear); Urine Color Light-Yellow (Yellow); Urine Protein, UAD Negative (Negative); Urine Specific Gravity 1.015 (1.001-1.035); Urine Urobilinogen 2 mg/dL (Negative); Urine pH 7.5 (5.0-9.0)
[2024-04-17 10:12] LABS: Alanine Aminotransferase 16 U/L (7-40); Alkaline Phosphatase 115 U/L (46-116); Anion Gap 2 (5-15); BUN/Creatinine Ratio 8.8 (10.0-20.0); Blood Urea Nitrogen 8 mg/dL (9-23); Calcium 9.6 mg/dL (8.5-10.1); Carbon Dioxide 31 mmol/L (20-30); Chloride 108 mmol/L (98-107); Glucose 96 mg/dL (74-106); Potassium 4.3 mmol/L (3.5-5.1); Sodium 141 mmol/L (136-145); Triglycerides 75 mg/dL (< 150)
[2024-04-17 10:13] LABS: Albumin 4.1 g/dL (3.2-4.8); Aspartate Aminotransferase 19 U/L (13-40); LDL Cholesterol 91 mg/dL (< 100)
[2024-04-17 10:14] LABS: Bilirubin, Direct 0.1 mg/dL (<0.3); Bilirubin, Total 0.4 mg/dL (0.2-1.0); Cholesterol 167 mg/dL (< 200); HDL Cholesterol 59 mg/dL (40-59); Total Protein 6.9 g/dL (5.7-8.2)
== END | disposition home or self-care (01) ==
LOC: LAB 08:37
PROVIDERS: ATTEND Internal Medicine Cardiovascular Disease
DX: I10 Essential (primary) hypertension (principal); D51.3 Other dietary vitamin B12 deficiency anemia; E11.9 Type 2 diabetes mellitus without complications; E55.9 Vitamin D deficiency, unspecified; R30.0 Dysuria; R53.1 Weakness; R00.2 Palpitations; D64.9 Anemia, unspecified
CPT/HCPCS: 36415; 80048; 80061; 80076; 81003; 83036; 84443; 85025

== ENCOUNTER → 2024-12-12 | Outpatient (CLI) | payer MEDICARE, MEDICAID ==
[~2024-12-12] MED LIST changes: +ALBUAER3 IN; +CHOL500023 PO; +FERR325T24 PO; +GLUC-149 VI; +METO-281 PO; +MULT-1018 PO; +OMEG-20 PO; +OMEP-448 PO; +PANT40TA57 PO; +PROM25TA10 PO; +RANO500T3 PO; +SEMA4INJ SC; +VORT10TA PO; +ZINC100T5 PO
[2024-12-12 08:56] VITALS: BP 126/79; PULSE 75; RESP 16; O2SAT 94
[2024-12-12 09:14] VITALS: BP 124/77; PULSE 71; RESP 16; O2SAT 94
--- NOTE | 2024-12-12 12:46 | DVH ---
XY CHEST TWO VIEWS ROUTINE CLINICAL HISTORY: PRE OP, pain COMPARISON: none TECHNIQUE: Frontal and lateral view of the chest was obtained FINDINGS: Lines and Tubes: Left sided pacemaker Lungs: No focal consolidation. Pleura: No effusion. No pneumothorax. Cardiomediastinal contours: Unremarkable Bones: No acute osseous abnormality. IMPRESSION: No acute cardiopulmonary disease.
== END | disposition home or self-care (01) ==
LOC: Rad HDHVI 08:47
PROVIDERS: ATTEND Internal Medicine Cardiovascular Disease
DX: Z01.811 Encounter for preprocedural respiratory examination (principal); Z45.02 Encounter for adjustment and management of automatic implantable cardiac defibrillator; I11.0 Hypertensive heart disease with heart failure; I50.33 Acute on chronic diastolic (congestive) heart failure; R07.9 Chest pain, unspecified
CPT/HCPCS: 71046; 93005; G0463

== ENCOUNTER 2024-12-13 07:39 | Day surgery (SDC) | payer MEDICARE, MEDICAID ==
[2024-12-12 11:43] LABS: Basophils # (auto) 0 10 ^3/uL (0-0.2); Basophils % (auto) 0.6 % (0.0-2.0); Eosinophils # (auto) 0.1 10 ^3/uL (0-0.8); Eosinophils % (auto) 1.4 % (0.0-7.0); Hematocrit 38.4 % (36.0-46.0); Hemoglobin 12.9 g/dL (12.2-16.2); Lymphocytes # (auto) 1.7 10 ^3/uL (0.4-5.4); Lymphocytes % (auto) 37.2 % (10.0-50.0); Mean Corpuscular Hemoglobin 32.2 pg (28.0-32.0); Mean Corpuscular Hgb Conc. 33.6 g/dL (32.0-36.0); Mean Corpuscular Volume 95.9 fL (80.0-100.0); Monocytes # (auto) 0.3 10 ^3/uL (0-1.3); Monocytes % (auto) 5.6 % (0.0-12.0); Neutrophils # (auto) 2.6 10 ^3/uL (1.6-8.6); Neutrophils % (auto) 55.2 % (37.0-80.0); Platelet Count (auto) 228 10^3/uL (140-450); White Blood Cell 4.7 10^3/uL (4.4-10.8)
[2024-12-12 12:03] LABS: INR 1.07 (0.9-1.15); Partial Thromboplastin Time 30.9 SEC (24.5-34.5); Prothrombin Time 11.3 sec (9.3-11.8)
[2024-12-12 12:57] LABS: Anion Gap 6 (5-15); Carbon Dioxide 29 mmol/L (20-31); Chloride 105 mmol/L (98-107); Potassium 3.9 mmol/L (3.5-5.1); Sodium 140 mmol/L (136-145)
[2024-12-12 12:58] LABS: Calcium 9.6 mg/dL (8.7-10.4)
[2024-12-12 13:03] LABS: Blood Urea Nitrogen 15 mg/dL (9-23)
[2024-12-12 13:04] LABS: Glucose 74 mg/dL (74-106)
[~2024-12-13] VITALS: Ht 160 cm; Wt 87.1 kg
[~2024-12-13 07:39] MED LIST changes: -GARL10CA2 PO; -MECL-90 PO; -MEGE40TA4 PO; -MELA3TAB27 PO; -MET10T PO; -OMEP20CA74 PO; -PANTPAK; -PEDI0.2512; -PRENTAB76; -RANO500T2 PO
[2024-12-13] MEDS ORDERED: MIDAZOLAM HCL 2MG/2ML 2ml VIAL (1mg/ml) ONE ×2 (14:04→14:39)
[2024-12-13] MEDS ORDERED: fentaNYL CITRATE 100 MCG/2 ML VL ONE (14:05)
[2024-12-13] MEDS ORDERED: VANCOMYCIN HCL 1000 MG VL ONE (14:05)
[2024-12-13] MEDS ORDERED: LIDOCAINE 2%HCL (LOCAL ANESTH.) INJ 20ML MDV ONE (14:06)
[2024-12-13] MEDS ORDERED: VANCOMYCIN 1GM/250ML KIT 250 ML IV ONE (14:06)
--- NOTE | 2024-12-13 15:37 | DVHOP ---
DATE OF SURGERY: 12/13/2024 PROCEDURE PERFORMED: Explantation of dual chamber permanent pacemaker with implantation of dual chamber permanent pacemaker with conscious sedation. DESCRIPTION OF PROCEDURE: The patient was prepped and draped in a sterile condition. 1% Xylocaine used to anesthetize the left subclavicular region. Using a 10 blade, linear incision was made using blunt dissection, electrocautery, pocket was then dissected out. The old generator was then explanted, which is a Blake Duarte DR, serial #[id number]. The new device implanted is Edora 8 DR-T, which is a [employer] device, model #948965, serial #[id number]. Atrial lead is Blake Tilda R45, serial #[id number]. RV lead is Blake Tilda R53, serial #[id number]. Right atrium, R-wave amplitude of 2.9 millivolts, threshold of 1.2 volts at 0.4 milliseconds pulse duration, pacing impedance of 505 ohms. Right ventricular lead, R-wave amplitude 4.7 millivolts, threshold of 1.5 volts at 0.4 milliseconds pulse duration, pacing impedance of 465 ohms. CONCLUSION: The patient has successful explantation of old dual chamber permanent pacemaker, implantation new Biotronik dual-chamber permanent pacemaker. This is not an MRI compatible system. Shaquille Macedo MD SA/NOÉ TID: [id number] RECEIPT: [id number]
--- NOTE | 2024-12-13 15:40 | DVHDS ---
DATE OF DISCHARGE: 12/13/2024 DISCHARGE DIAGNOSES: * The patient with sick sinus syndrome. * History of coronary artery disease. * Status post dual chamber permanent pacemaker generator change. HOSPITAL COURSE: The patient is clinically stable, may be discharged home. FOLLOWUP: Follow up with me in 1 week. Stable at the time of discharge. ACTIVITY: As instructed. DIET: Will be 2 gram sodium diet. Shaquille Macedo MD SA/FLAKO TID: [id number] RECEIPT: [id number]
--- NOTE | 2024-12-13 15:48 | DVHHP ---
ADMIT DATE: 12/13/2024 HISTORY OF PRESENT ILLNESS: The patient is 64 years old with history of sick sinus syndrome, status post dual chamber permanent pacemaker implantation in 2013. The patient now with permanent pacemaker end of life, now needs changes. Pertinent medical history is significant for marked bradycardia, syncopal episode secondary to bradycardia and since permanent pacemaker, the patient has not had a bradycardial episode; however, for the last 1 year, battery has been end of life and yet, she has not had any symptoms, but in the past, it has paced her out of marked bradyarrhythmia and prevented syncope; therefore, generator will be changed. PERTINENT MEDICAL HISTORY: Significant for remote history of drug use. 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 In the meantime, the patient had a gastric bypass surgery and had complications of gastric bypass surgery and that too has stabilized now. REVIEW OF SYSTEMS: She denies any fever or chills. No melena or hematochezia. No seizure disorder. No history of hematemesis, hemoptysis or hematuria. No history of any rheumatologic disorders, history of any irritable bowel syndrome or inflammatory bowel disease. No history of CVA. No history of seizure disorder. PHYSICAL EXAMINATION: VITAL SIGNS: Blood pressure is 134/80, pulse of 50 and regular, O2 saturation 98%. HEENT: Pupils are reactive. Funduscopic exam is benign. Sclerae anicteric. Oral mucosa moist. Posterior pharynx without any exudate. NECK: No JVD appreciated. Carotid pulses are 2+ symmetrical, normal upstroke and contour. PULMONARY: Clear to auscultation. CARDIOVASCULAR: Regular rate without S3, without S4. PMI is not displaced. ABDOMEN: Soft, nontender, obese. Unable to appreciate an organomegaly. SKIN: Unremarkable. EXTREMITIES: 2+ pulses. NEUROLOGIC: The patient is intact. ASSESSMENT AND PLAN: Thus, the patient with sick sinus syndrome, now to undergo permanent pacemaker implantation. Further recommendations after the pacemaker. Shaquille Macedo MD SA/NOÉ/MORGAN TID: [id number] RECEIPT: [id number]
== END 2024-12-13 17:07 | disposition home or self-care (01) ==
LOC: CATH 07:39
PROVIDERS: ATTEND Internal Medicine Cardiovascular Disease
DX: Z45.010 Encounter for checking and testing of cardiac pacemaker pulse generator [battery] (principal); I25.10 Atherosclerotic heart disease of native coronary artery without angina pectoris; I49.5 Sick sinus syndrome; Z98.84 Bariatric surgery status; R07.89 Other chest pain; R06.02 Shortness of breath; I10 Essential (primary) hypertension
CPT/HCPCS: 33228; 36415; 80048; 85025; 85610; 85730; C1785; J2250; J3010; J3370; 99152; A4565

== ENCOUNTER → 2025-01-11 | Outpatient (CLI) | payer MEDICARE, MEDICAID ==
--- NOTE | 2025-01-11 12:54 | DVH ---
CLINICAL INDICATION: KNEE PAIN TECHNIQUE: 3 radiographic views of the right knee were obtained. Comparison: None FINDINGS/IMPRESSION: There is no evidence of acute fracture or dislocation. The visualized joint space is well maintained. Status post right knee arthroplasty. The alignment is anatomical. There is no radiopaque foreign body.
--- NOTE | 2025-01-11 14:13 | DVH ---
CT LS SPINE WO CONTRAST Date: 01/11/2025 11:24 AM History: LBP Comparison: None TECHNIQUE: Multiple axial CT images of the lumbosacral spine were obtained using bone algorithm. Axial and coron al reformatting was done. Bone and soft tissue windows were reviewed. Radiation Dose Information: CT Dose: CTDI volume is 32.46 mGy. Dose-length product is 775.96 mGy*cm FINDINGS: No CT evidence of definite acute fracture, spinal dislocation, or significant appearing acute subluxa tion is seen. The visualized paraspinal soft tissues are grossly unremarkable. T12-L1 There is no evidence of central spinal canal or neuroforaminal stenosis. L1-L2 There is no evidence of central spinal canal or neuroforaminal stenosis. Grade 1 retrolisthesis L1-2 L2-L3 There is no evidence of central spinal canal or neuroforaminal stenosis. Grade 1 retrolisthesis L2-3 L3-L4 There is no evidence of central spinal canal or neuroforaminal stenosis. Grade 1 retrolisthesis L3-4 L4-L5 There is no evidence of central spinal canal or neuroforaminal stenosis. Pedicle screws and rods in place with intervertebral spacer visualized. Normal bony alignment L5-S1 There is no evidence of central spinal canal or neuroforaminal stenosis. Bilateral laminectomy at L5-S1. IMPRESSION: 1. Pedicle screws and rods in place at L4-5. Normal bony alignment. 2. Degenerative disc changes from L1 through S1. 3. Grade 1 retrolisthesis L3-4 L2-3 and L1-2. 4. Bilateral laminectomy and L5-S1. All CT scans at this medical facility are performed using dose modulation techniques as appropriate t o a performed exam including the following: Automated exposure control was utilized; adjustment of th e MA and/or KV according to patient size; and use of iterative reconstruction technique. HS:Y
== END | disposition home or self-care (01) ==
LOC: Rad HDHVI 11:07
PROVIDERS: ATTEND Internal Medicine Cardiovascular Disease
DX: M47.817 Spondylosis without myelopathy or radiculopathy, lumbosacral region (principal); M43.16 Spondylolisthesis, lumbar region; M54.50 Low back pain, unspecified; M25.561 Pain in right knee; Z96.651 Presence of right artificial knee joint
CPT/HCPCS: 72131; 73562